=== PATIENT | female | born 1975 | race American Indian/Alaskan Native ===

== ENCOUNTER 2018-06-03 11:09 | Emergency (ER) | payer OTHER ==
[~2018-06-03] VITALS: Ht 154.9 cm; Wt 90.3 kg
--- OUTSIDE RECORDS SUMMARY | ~2018-06-03 | XMS | Clinical Summary ---
Demographics + + + | Address | [address] | | | [place] [address] | + + + | Home Phone | | + + + | Preferred Language | Unknown | + + + | Marital Status | | + + + | Holiness Affiliation | 1074 | + + + | Race | Unknown | + + + | Ethnic Group | Unknown | + + + Author + + + | Author | [facility] | | | and [place] | + + + | Organization | [facility] | | | and [place] | + + + | Address | Unknown | + + + | Phone | Unavailable | + + + Support + + +---------+ + | Name | Relationship | Address | Phone | + + +---------+ + | Sandra Broussard | ECON | Unknown | | + + +---------+ + | Cally Mendez | ECON | Unknown | | + + +---------+ + Care Team Providers + +------+ + | Care Carton Packaging Machine Operator Name | Role | Phone | + +------+ + | Alice Luque PA-C | PP | | + +------+ + Allergies + + + + + + | Active Allergy | Reactions | Severity | Noted | Comments | | | | | Date | | + + + + + + | Hydrocodone | Nausea And Vomiting | | 11/11/19 | | | | | | 16 | | + + + + + + Current Medications + + +--------+---------+------+------+-------+ | Prescription | Sig. | Disp. | Refills | Star | End | Statu | | | | | | t | Date | s | | | | | | Date | | | + + +--------+---------+------+------+-------+ | cholecalciferol | Take 2,000 Units by | | | | | Activ | | (VITAMIN D-3) 2000 | mouth Daily. | | | | | e | | UNITS TABS | | | | | | | + + +--------+---------+------+------+-------+ | estradiol | Take 2 mg by mouth | | | | | Activ | | (ESTRACE) 2 MG | Daily. | | | | | e | | tablet | | | | | | | + + +--------+---------+------+------+-------+ | fluticasone | 2 sprays by Nasal | | | | | Activ | | (FLONASE) 50 | route Daily. | | | | | e | | mcg/nasal spray | | | | | | | + + +--------+---------+------+------+-------+ | loratadine | Take 10 mg by mouth | | | | | Activ | | (CLARITIN) 10 mg | Daily. | | | | | e | | tablet | | | | | | | + + +--------+---------+------+------+-------+ | Multiple Vitamin | Take 1 tablet by | | | | | Activ | | (MULTI VITAMIN DAILY | mouth Daily. | | | | | e | | PO) | | | | | | | + + +--------+---------+------+------+-------+ | | Take 12.5 mg by | | | | | Activ | | hydrochlorothiazide | mouth Daily. | | | | | e | | (HYDRODIURIL) 12.5 | | | | | | | | MG tablet | | | | | | | + + +--------+---------+------+------+-------+ | ondansetron | Take 1 tablet by | 2 | 0 | 08/2 | | Activ | | (ZOFRAN) 4 mg tablet | mouth See Admin | tablet | | 3/20 | | e | | | Instructions. If | | | 16 | | | | | nausea with prep. | | | | | | | | Stop prep, take 1 | | | | | | | | tab by mouth,wait 30 | | | | | | | | min, restart prep | | | | | | | | may repeat | | | | | | + + +--------+---------+------+------+-------+ Active Problems + + + | Problem | Noted Date | + + + | Special screening for malignant neoplasms, colon | 11/29/2015 | + + + | Family history of malignant neoplasm of gastrointestinal tract | 11/29/2015 | + + + | Bloating | 11/29/2015 | + + + | IgG Gliadin antibody positive | 11/14/2015 | + + + | Abdominal pain, generalized | 11/14/2015 | + + + | Diarrhea | 11/14/2015 | + + + Family History + + +------+ + | Medical History | Relation | Name | Comments | + + +------+ + | No Known Problems | Father | | | + + +------+ + | No Known Problems | Mother | | | + + +------+ + | Colon cancer | | | | + + +------+ + | Diabetes | | | | + + +------+ + + +------+--------+ + | Relation | Name | Status | Comments | + +------+--------+ + | Father | | Alive | | + +------+--------+ + | Mother | | Alive | | + +------+--------+ + Social History + +-------+ +--------+------+ | Tobacco Use | Types | Packs/Day | Years | Date | | | | | Used | | + +-------+ +--------+------+ | Never Smoker | | | | | + +-------+ +--------+------+ + +---+---+---+ | Smokeless Tobacco: | | | | | Never Used | | | | + +---+---+---+ + + +---------+ + | Alcohol Use | Drinks/We | oz/Week | Comments | | | ek | | | + + +---------+ + | Yes | 0 | 0.0 | | | | Standard | | | | | drinks or | | | | | | | | | | equivalen | | | | | t | | | + + +---------+ + + + + | Sex Assigned at | Date Recorded | | | | + + + | Not on file | | + + + Last Filed Vital Signs + + + + | Vital Sign | Reading | Time Taken | + + + + | Blood Pressure | 114/68 | 12/02/2015 1215 PDT | + + + + | Pulse | 64 | 12/02/2015 1215 PDT | + + + + | Temperature | 36 C (96.8 F) | 12/02/2015 1000 PDT | + + + + | Respiratory Rate | 17 | 12/02/20151214 PDT | + + + + | Oxygen Saturation | 97% | 12/02/20151214 PDT | + + + + | Inhaled Oxygen | - | - | | Concentration | | | + + + + | Weight | 88.5 kg (195 lb) | 12/02/2015 1000 PDT | + + + + | Height | 154.9 cm (5' 1") | 12/02/2015 1000 PDT | + + + + | Body Mass Index | 36.84 | 12/02/2015 1000 PDT | + + + + Plan of Treatment + + + + + | Health Maintenance | Due Date | Last Done | Comments | + + + + + | Vaccine: | | | | | Dtap/Tdap/Td (1 - | 3 | | | | Tdap) | | | | + + + + + | Vaccine: Influenza | | | | | (#1) | 8 | | | + + + + + Results Not on filefrom Last 3 Months Insurance + +--------+ +--------+-------+---------+ | Payer | Benefi | Subscriber | Type | Phone | Address | | | t Plan | ID | | | | | | / | | | | | | | Group | | | | | + +--------+ +--------+-------+---------+ | BCBS | BCBS | [id number] | PPO | | | | | [place] | | | | | | | L FEP | | | | | + +--------+ +--------+-------+---------+ | [facility] | IHS | [id number] | Indemn | | | | SERVICE | YELLOW | | ity | | | | | [place] | | | | | + +--------+ +--------+-------+---------+ + +--------+ +--------+ + + | Guarantor Name | Accoun | Relation to | Date | Phone | Billing Address | | | t Type | Patient | of | | | | | | | | | | + +--------+ +--------+ + + | JAVY BROUSSARD | Person | Self [birth year] Home: | [id number] | | [place] | al/Fam | | 1976 | [phone] | [address] [place], | | | [place] | | | [phone] | [place] [address] | + +--------+ +--------+ + +
--- OUTSIDE RECORDS SUMMARY | ~2018-06-03 | XMS | Clinical Summary ---
Demographics + + + | Address | [address] | | | [place] [address] | + + + | Home Phone | | + + + | Preferred Language | Unknown | + + + | Marital Status | | + + + | Adventism Affiliation | 1074 | + + + | Race | Unknown | + + + | Ethnic Group | Unknown | + + + Author + + + | Author | [facility] | | | and [place] | + + + | Organization | [facility] | | | [...] Team Providers + +------+ + | Care Pointer Machine Operator Name | Role | Phone [...] +--------+ +--------+-------+---------+ | BCBS | BCBS | [id number] | PPO | | | | | [place] | | | | | | | L FEP | | | | | + +--------+ +--------+-------+---------+ | [facility] | IHS | [id number] | Indemn | | | | SERVICE [...] | Self [birth year] | Home: | [address] | | [place] | al/Fam | | 1976 | [phone] | [address] [place], | | | [place] | | | [address] | [place] [address] | + +--------+ +--------+ + +
[~2018-06-03 11:09] MED LIST: ATIVAN1 MG PO; DAILY VITAMIN1 EAC2 PO; ESTRADIOL2 MG PO; IBUPROFEN600 MG PO; LOSARTAN POTASS25 MG PO; NAPROSYN250 MG PO; NORCO 10-325 T1 EACH PO; PERCOCET 7.5-31 EACH PO; PROMETHAZINE12.5 M1 PO; TRAMADOL HCL50 MG PO; TYLENOL WITH C1 EACH PO; VITAMIN D5000 UNIT PO
--- OUTSIDE RECORDS SUMMARY | 2018-06-03 11:12 | XMS ---
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 [facility] has no Care Guidelines for this patient. Mert VISIT COUNT (12 MO.) 1 KIRSTIN Gracia TOTAL 1 NOTE: Visits indicate total known visits. ED/UCC VISIT TRACKING (12 MO.) 06/03/2018 11:10 [facility] Garcia [place] TYPE: Emergency COMPLAINT: - WEAKNESS/VOMITING INPATIENT VISIT TRACKING (12 MO.) No inpatient visits to display in this time frame [id number]
[2018-06-03] MEDS ORDERED: OXYCODONE HCL5 MG PO (11:28)
[2018-06-03] MEDS ORDERED: TYLOPHEN500 MG PO (11:29)
[2018-06-03] MEDS ORDERED: HYDROCHLOROTH12.5 MG PO (11:29)
[2018-06-03] MEDS ORDERED: ONDANSETRON ODT8 MG PO ×3 (12:44→12:45)
[2018-06-03] MEDS ORDERED: TAMIFLU75 MG PO (12:44)
[2018-06-03] MEDS ORDERED: GUAIFEN-CODEINE10 ML PO (12:44)
== END 2018-06-03 13:28 | disposition home or self-care (01) ==
LOC: ED 11:09
DX: J10.1 Influenza due to other identified influenza virus with other respiratory manifestations (principal); Z90.710 Acquired absence of both cervix and uterus; Z88.5 Allergy status to narcotic agent; Z79.899 Other long term (current) drug therapy
CPT/HCPCS: 71045; 80048; 85025; 87502; 96361; 96374; 96375; 99283-25; J1885; J2405; J7030